=== PATIENT | male | born 1990 | race Caucasian/White ===

== ENCOUNTER 2016-06-06 07:30 | Emergency (ER) ==
--- NOTE | 2016-06-06 07:50 | EKG Report ---
Test Performed on : 06/06/2016 07:41:58 AM Test Reason : CHEST PAIN Blood Pressure : / mmHG Vent. Rate : 064 BPM Atrial Rate : 064 BPM P-R Int : 166 ms QRS Dur : 092 ms QT Int : 390 ms P-R-T Axes : 018 043 045 degrees QTc Int : 402 ms Normal sinus rhythm. Normal ECG When compared with ECG of 17-JUL-2008 22:21, No significant change was found Unconfirmed Result
--- NOTE | 2016-06-06 07:54 | PROVIDER DOCUMENTATION ---
HPI-Psychological Disorder - General Chief Complaint: Chest Pain Stated Complaint: cp Time Seen by Provider: 06/06/16 07:46 Source: patient Allergies/Adverse Reactions: Patient Allergies Allergy/AdvReac Type Severity Reaction Status Date / Time tramadol Allergy ITCHING Verified 06/06/16 09:03 - History of Present Illness-Psych Nature of Presenting Problem: pt awoke with severe chest pain going down to his knees and when given 10 ml of NS it resolved in the ambulance coming in. He is a bipolar patient and is on no meds and has just recently applied for disability. he currently feels fine Review of Systems - Adult - REVIEW OF SYSTEMS - ADULT Constitutional: denies: chills, fever Eyes: denies: discharge, blurred vision Ears, Nose, Mouth & Throat: denies: ear discharge, nose pain, throat pain Cardiovascular: denies: chest pain, heart murmur, syncope Musculoskeletal: denies: bone pain, joint pain, muscle weakness Integumentary: denies: hives, mole changes, skin thickening Neurological: denies: ataxia, numbness, other Psychiatric: reports: anxiety, other (staesthat he has bipolar. Quit school at 10th grade and home schooled for GED). denies: panic attacks Endocrine: reports: goiter, cold intolerance, heat intolerance Hematologic/Lymphatic: reports: low blood count, lymphedema Allergic/Immunologic: reports: eczema, frequent infections, hives Past History - Adult - PAST MEDICAL HISTORY-ADULT Review of Records: reports: Nursing Assessment Review, Medications Reviewed, Social history reviewed & non-contributory. Major Childhood Illnesses: reports: denies history Cardiovascular: reports: denies history Respiratory: reports: denies history Gastrointestinal: reports: denies history Obstetrical/Gynecological: reports: denies history Genitourinary: reports: denies history Musculoskeletal: reports: denies history Neurological: reports: denies history Endocrine/Immune: reports: denies history Other Conditions: reports: denies history - PRIOR SURGERIES/PROCEDURES Surgical/Procedure History: reports: tonsillectomy Physical Exam-Psych Focus - Physical Exam-Psych Initial Vital Signs Reviewed: Yes Appearance: appropriate appearance, appropriate insight, neat, no apparent destress, no memory impairment Neurological: normal mood/affect, calm, oriented x 3 Behavior/Eye Contact/Speech: cooperative, good eye contact, normal speech Thoughts/Hallucinations: normal thought pattern, no apparent hallucination, other (insomnia, sleeps maybe 4 hours, mood labile) HENMT: normocephalic/atraumatic, moist mucous membranes, normal ENT inspection, TMs normal Neck: non-tender, full range of motion, supple Respiratory: chest non-tender, lungs clear, normal breath sounds, no pleuratic chest pain, no respiratory distress, no accessory muscle use Cardiovascular: normal peripheral pulses, regular rate, rhythm, no edema, no gallop Abdominal Exam: non tender, soft, no organomegaly, no pulsatile mass Lymphatic: no adenopathy Back Exam: normal inspection, no CVA tenderness, no vertebral tenderness Extremity: normal range of motion, non-tender Integumentary: normal color, normal turgor, warm/dry Progress - PLAN OF CARE/RESULTS Progress/Plan/Lab Results: Laboratory Tests 06/06/16 06/06/16 06/06/16 08:15 08:15 08:15 WBC 8.11 RBC 4.75 Hgb 13.1 L Hct 40.8 L MCV 85.9 MCH 27.6 MCHC 32.1 L RDW Std Deviation 14.0 Plt Count 159 MPV 13.1 H Immature Gran % (Auto) 0.2 Neut % (Auto) 59.6 Lymph % (Auto) 29.0 [place] % (Auto) 8.1 Eos % (Auto) 2.6 Baso % (Auto) 0.5 Immature Gran # (Auto) 0.02 Neut # (Auto) 4.83 Lymph # (Auto) 2.35 [place] # (Auto) 0.66 H Eos # (Auto) 0.21 Baso # (Auto) 0.04 PT INR PTT (Actin FS) D-Dimer 0.19 Sodium 142 Potassium 4.2 Chloride 107 Carbon Dioxide 27 Anion Gap 8 BUN 13 Creatinine 0.9 Estimated GFR/1.73 m2 > 60 BUN/Creatinine Ratio 14 Glucose 74 Calculated Osmolality 282 Calcium 8.9 Magnesium 1.7 Total Bilirubin 0.16 L AST 10 ALT 12 Alkaline Phosphatase 73 Creatine Kinase 74 Troponin T Total Protein 6.4 Albumin 4.0 Globulin 2.4 Albumin/Globulin Ratio 1.7 Urine Source Urine Color Urine Turbidity Urine pH Ur Specific [place] Urine Protein Ur Glucose (Stick) Ur Ketones (Stick) Urine Blood Urine Nitrite Urine Bilirubin Urobilinogen Dipstick Urine Leukocytes Urine WBC (Auto) Urine RBC (Auto) U Epithel Cells (Auto) Urine Bacteria (Auto) 06/06/16 06/06/16 06/06/16 08:15 08:15 08:15 WBC RBC Hgb Hct MCV MCH MCHC RDW Std Deviation Plt Count MPV Immature Gran % (Auto) Neut % (Auto) Lymph % (Auto) [place] % (Auto) Eos % (Auto) Baso % (Auto) Immature Gran # (Auto) Neut # (Auto) Lymph # (Auto) [place] # (Auto) Eos # (Auto) Baso # (Auto) PT 10.0 INR 0.94 PTT (Actin FS) 24.7 D-Dimer Sodium Potassium Chloride Carbon Dioxide Anion Gap BUN Creatinine Estimated GFR/1.73 m2 BUN/Creatinine Ratio Glucose Calculated Osmolality Calcium Magnesium Total Bilirubin AST ALT Alkaline Phosphatase Creatine Kinase Troponin T < 0.010 Total Protein Albumin Globulin Albumin/Globulin Ratio Urine Source CLEAN CATCH Urine Color YELLOW Urine Turbidity CLEAR Urine pH 6.5 Ur Specific [place] 1.019 Urine Protein NEGATIVE Ur Glucose (Stick) 100 A Ur Ketones (Stick) NEGATIVE Urine Blood NEGATIVE Urine Nitrite NEGATIVE Urine Bilirubin NEGATIVE Urobilinogen Dipstick NORMAL Urine Leukocytes NEGATIVE Urine WBC (Auto) <10 Urine RBC (Auto) <10 U Epithel Cells (Auto) <10 Urine Bacteria (Auto) NEGATIVE Orders Category Date Time Status Cardiac Monitoring DIRECTED Care 06/06/16 08:16 Active Saline Loc NOW Care 06/06/16 08:16 Active CHEST-2 VIEWS [RAD] Stat Exams 06/06/16 08:16 Taken CBC WITH ELECTRONIC DIFF [HEME] Stat Lab 06/06/16 08:15 Completed CK PROFILE [SP CHEM] Stat Lab 06/06/16 08:15 Completed COMPREHENSIVE METABOLIC PANEL [CHEM] Stat Lab 06/06/16 08:15 Completed D-DIMER [CHEM] Stat Lab 06/06/16 08:15 Completed MAGNESIUM [CHEM] Stat Lab 06/06/16 08:15 Completed PROTIME WITH INR [COAG] Stat Lab 06/06/16 08:15 Completed PTT [COAG] Stat Lab 06/06/16 08:15 Completed TROPONIN T Stat Lab 06/06/16 08:15 Completed URINALYSIS W/POSS RFLX CULT [URINALYSIS] Stat Lab 06/06/16 08:15 Completed EKG [EKG] Stat Ther 06/06/16 07:39 Draft EKG [EKG] Stat Ther 06/06/16 08:16 Ordered Vital Signs Temp Pulse Resp BP Pulse Ox 06/06/16 07:35 98 F 71 16 122/80 99 tramadol Allergy (Verified 06/06/16 09:03) ITCHING Laboratory 06/06/16 06/06/16 06/06/16 08:15 08:15 08:15 WBC RBC Hgb Hct MCV MCH MCHC RDW Std Deviation Plt Count MPV Immature Gran % (Auto) Neut % (Auto) Lymph % (Auto) [place] % (Auto) Eos % (Auto) Baso % (Auto) Immature Gran # (Auto) Neut # (Auto) Lymph # (Auto) [place] # (Auto) Eos # (Auto) Baso # (Auto) PT 10.0 INR 0.94 PTT (Actin FS) 24.7 D-Dimer Sodium Potassium Chloride Carbon Dioxide Anion Gap BUN Creatinine Estimated GFR/1.73 m2 BUN/Creatinine Ratio Glucose Calculated Osmolality Calcium Magnesium Total Bilirubin AST ALT Alkaline Phosphatase Creatine Kinase Troponin T < 0.010 Total Protein Albumin Globulin Albumin/Globulin Ratio Urine Source CLEAN CATCH Urine Color YELLOW Urine Turbidity CLEAR Urine pH 6.5 Ur Specific [place] 1.019 Urine Protein NEGATIVE Ur Glucose (Stick) 100 A Ur Ketones (Stick) NEGATIVE Urine Blood NEGATIVE Urine Nitrite NEGATIVE Urine Bilirubin NEGATIVE Urobilinogen Dipstick NORMAL Urine Leukocytes NEGATIVE Urine WBC (Auto) <10 Urine RBC (Auto) <10 U Epithel Cells (Auto) <10 Urine Bacteria (Auto) NEGATIVE 06/06/16 06/06/16 06/06/16 08:15 08:15 08:15 WBC 8.11 RBC 4.75 Hgb 13.1 L Hct 40.8 L MCV 85.9 MCH 27.6 MCHC 32.1 L RDW Std Deviation 14.0 Plt Count 159 MPV 13.1 H Immature Gran % (Auto) 0.2 Neut % (Auto) 59.6 Lymph % (Auto) 29.0 [place] % (Auto) 8.1 Eos % (Auto) 2.6 Baso % (Auto) 0.5 Immature Gran # (Auto) 0.02 Neut # (Auto) 4.83 Lymph # (Auto) 2.35 [place] # (Auto) 0.66 H Eos # (Auto) 0.21 Baso # (Auto) 0.04 PT INR PTT (Actin FS) D-Dimer 0.19 Sodium 142 Potassium 4.2 Chloride 107 Carbon Dioxide 27 Anion Gap 8 BUN 13 Creatinine 0.9 Estimated GFR/1.73 m2 > 60 BUN/Creatinine Ratio 14 Glucose 74 Calculated Osmolality 282 Calcium 8.9 Magnesium 1.7 Total Bilirubin 0.16 L AST 10 ALT 12 Alkaline Phosphatase 73 Creatine Kinase 74 Troponin T Total Protein 6.4 Albumin 4.0 Globulin 2.4 Albumin/Globulin Ratio 1.7 Urine Source Urine Color Urine Turbidity Urine pH Ur Specific [place] Urine Protein Ur Glucose (Stick) Ur Ketones (Stick) Urine Blood Urine Nitrite Urine Bilirubin Urobilinogen Dipstick Urine Leukocytes Urine WBC (Auto) Urine RBC (Auto) U Epithel Cells (Auto) Urine Bacteria (Auto) Departure - Departure Time of Disposition Order: 09:41 DIAGNOSIS: Panic anxiety syndrome, Bipolar 1 disorder Disposition: HOME 01 Certified Medical Emergency: Emergent Condition: Stable Additional Instructions: ED Follow Up Instructions: You have been treated by a care provider in the Emergency Department. These instructions are being provided to you so you can have an understanding of how to care for yourself upon discharge. Upon discharge from the Emergency Department, you are responsible for making arrangements for follow-up care by a physician of your choice. Take all prescribed medications as directed. Return to the Emergency Department immediately for any new or worsening symptoms. You may call the Physician Referral phone number at [phone] to obtain a list of Physicians who are taking new patients. Prescriptions: Carbamazepine [Tegretol] 200 mg PO BID #60 tablet Referrals: Joseph Horton [Primary Care Provider] -
[2016-06-06 08:47] LABS: MANUAL DIFF NEEDED? NO; URINE CULTURE NEEDED? NO; URINE MICRO REVIEW NEEDED? NO; URINE SOURCE CLEAN CATCH
[2016-06-06 08:53] LABS: BASO% 0.5 % (0.0-0.8); EOS# 0.21 X1000 (0.0-0.7); EOS% 2.6 % (0.0-10.0); HEMATOCRIT 40.8 % (42.0-52.0); HEMOGLOBIN 13.1 g/dL (14.0-18.0); IMM GRAN# 0.02 X1000 (0.0-0.04); IMM GRAN% 0.2 % (0.0-0.5); LYMPH# 2.35 X1000 (1.2-3.4); MCH 27.6 PG (27-31); MCHC 32.1 g/dL (33-37); MCV 85.9 FL (81-99); MONO# 0.66 X1000 (0.11-0.59); MONO% 8.1 % (1.7-9.3); MPV 13.1 FL (7.4-10.4); NEUT% 59.6 % (42.2-75.2); PLT 159 X1000 (130-400); RBC 4.75 XMIL (4.7-6.1)
[2016-06-06 08:54] LABS: BILIRUBIN URINE NEGATIVE (NEGATIVE); BLOOD URINE NEGATIVE (NEGATIVE); COLOR YELLOW; GLUCOSE URINE 100 mg/dL (NEGATIVE); LEUKOCYTES URINE NEGATIVE (NEGATIVE); NITRITE URINE NEGATIVE (NEGATIVE); PH URINE 6.5; PROTEIN URINE NEGATIVE (NEGATIVE); SP GRAVITY URINE 1.019; TURBIDITY URINE CLEAR (CLEAR); UROBILINOGEN URINE NORMAL (NORMAL)
[2016-06-06 08:58] LABS: UR EPITHELIAL CELLS <10 /HPF (<10); URINE BACTERIA NEGATIVE /HPF; URINE RBC <10 /HPF (<10); URINE WBC <10 /HPF (<10)
[2016-06-06 09:09] LABS: AGAP 8; ALKALINE PHOSPHATASE 73 U/L (32-122); BUN 13 mg/dL (8-22); CALCIUM 8.9 mg/dL (8.8-10.2); CHLORIDE 107 mmol/L (98-107); CK PROFILE 74 U/L (24-204); COSMO 282; GOT 10 U/L (10-34); GPT 12 U/L (10-44); INR 0.94; MAGNESIUM 1.7 mg/dL (1.5-2.7); POTASSIUM 4.2 mmol/L (3.5-5.1); PTT 24.7 Seconds (22.0-36.0); SODIUM 142 mmol/L (136-145); TCO2 27 mmol/L (25-35); TOTAL BILIRUBIN 0.16 mg/dL (0.20-1.00); TOTAL PROTEIN 6.4 g/dL (6.3-8.3)
[2016-06-06 10:30] VITALS: BP 103/57
--- NOTE | 2016-06-06 10:35 | Diag Imaging Result Document ---
PROCEDURE NAME: CHEST-2 VIEWS - 06/06/2016 PA AND LATERAL RADIOGRAPHS OF THE CHEST: COMPARISON: 09/25/2013. FINDINGS: The lungs are grossly clear. There is no discrete pleural fluid collection or evidence of pneumothorax. The cardiomediastinal silhouette and upper airway are grossly unremarkable. IMPRESSION: No evidence of acute chest pathology.
== END 2016-06-06 11:00 | disposition home or self-care (01) ==
LOC: EDBD → ED 07:30
DX: F41.0 Panic disorder [episodic paroxysmal anxiety] (principal); F31.9 Bipolar disorder, unspecified; R07.9 Chest pain, unspecified; M79.652 Pain in left thigh; M79.651 Pain in right thigh; L30.9 Dermatitis, unspecified; L50.9 Urticaria, unspecified
CPT/HCPCS: 71020; 80053; 81001; 82550; 83735; 84484; 85025; 85379; 85610; 85730; 93005; 99283